=== PATIENT | male | born 1970 | race Asian ===

== ENCOUNTER → 2016-12-08 | Outpatient (CLI) | payer OTHER ==
[~2016-12-08] MED LIST: ANT25 PO; ARTIOIN11 OP; ATV5X; CLC100; ERYT1OIN55 OPR; METO-217 PO; PANT40TA PO; POLY99.02 OP; TRIA0.1O12; VGMOPS OP
[2016-12-08 18:37] LABS: PHENOBARBITAL 5.7 mcg/mL (15.0-40.0)
[2016-12-08 18:55] LABS: CHOLESTEROL/HDL RATIO 5.5; THYROID STIMULATING HORMONE 1.18 uIu/ml (0.300-4.500)
== END | disposition home or self-care (01) ==
LOC: C.LABMFLN 07:53
PROVIDERS: ATTEND Family Medicine
DX: E78.00 Pure hypercholesterolemia, unspecified (principal); G62.9 Polyneuropathy, unspecified; G25.0 Essential tremor; R73.9 Hyperglycemia, unspecified

== ENCOUNTER → 2016-12-24 | Outpatient (CLI) | payer OTHER ==
[2016-12-24 13:54] LABS: CHOLESTEROL/HDL RATIO 5.3
== END | disposition home or self-care (01) ==
LOC: C.LABMFLN 07:46
PROVIDERS: ATTEND Family Medicine
DX: E78.5 Hyperlipidemia, unspecified (principal)